=== PATIENT | male | born 1945 | race African-American/Black ===

== ENCOUNTER 2019-05-22 00:19 | Emergency (ER) | payer MEDICARE, BC ==
[~2019-05-22] VITALS: Ht 175.3 cm; Wt 87.0 kg
[2019-05-22] MEDS ORDERED: PREDNISONE 20MG TABLET PO STA (02:03)
[2019-05-22] MEDS ORDERED: IPRATROPIUM BROMIDE (0.02%) 0.5MG/2.5ML NEB HHN STA (02:03)
[2019-05-22] MEDS ORDERED: ALBUTEROL (0.083%) 2.5MG/3ML NEB HHN STA (02:03)
[2019-05-22] MEDS ORDERED: ASPIRIN 81MG TABLET PO ONE (02:15)
[2019-05-22 02:34] LABS: BASOPHILS % 1.1 % (0.0-2.0); EOSINOPHILS % 7.9 % (0.0-5.0); HEMATOCRIT. 39.7 % (42.0-52.0); HEMOGLOBIN. 13.1 g/dL (14.0-18.0); LYMPHOCYTES % 22.3 % (20.0-50.0); MEAN CORPUSCULAR HEMOGLOBIN 28.7 pg (28.0-32.0); MEAN CORPUSCULAR VOLUME 86.9 fL (80.0-94.0); MEAN PLATELET VOLUME 10.1 fl (7.4-10.4); MONOCYTES % 12.5 % (2.0-8.0); NEUTROPHILS % 56.2 % (40.0-76.0); PLATELET 162 x1000/uL (130-400); RED BLOOD CELL COUNT 4.57 mill/uL (4.7-6.1); RED CELL DISTRIBUTION WIDTH 13.8 % (11.6-14.6)
[2019-05-22 02:39] LABS: CHLORIDE 107 mEq/L (98-107)
[2019-05-22 04:05] VITALS: BP 125/78
== END 2019-05-22 04:07 | disposition home or self-care (01) ==
LOC: ER 00:19
DX: J44.1 Chronic obstructive pulmonary disease with (acute) exacerbation (principal); Z87.891 Personal history of nicotine dependence; Z95.1 Presence of aortocoronary bypass graft; Z95.5 Presence of coronary angioplasty implant and graft; Z95.0 Presence of cardiac pacemaker
CPT/HCPCS: 36415; 71045; 80053; 83880; 84484; 85025; 87804; 93005; 94640; 99284; J7512; J7611